=== PATIENT | male | born 1970 | race American Indian/Alaskan Native ===

== ENCOUNTER 2017-05-15 19:45 | Emergency (ER) | payer SELFPAY ==
[2017-05-15] MEDS ORDERED: FUL-GLO OP ONE ×2 (20:13→20:14)
[2017-05-15] MEDS ORDERED: TETRACAINE 0.5% ONE (20:13)
--- NOTE | 2017-05-15 20:14 | Emergency Department Report ---
ED Eye Problem HPI - General Chief complaint: Eye Problems Stated complaint: EYE ISSUE Time Seen by Provider: 05/15/17 20:08 Source: patient, family Mode of arrival: Ambulatory Limitations: No Limitations - History of Present Illness Initial comments: patient complaining of left eye pain and he got metal in his left eye at work. Patient reports left eye pain at 10 out of 10. Patient reports that he got something is eyes at work yesterday. left eye is worst than right. denies decrease in vision but reports he feels like something is in his eyes. Patient wears glasses but said that he lost them and his eye sight is usually bad without glasses. TD vaccine 2 years ago. 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: occurred while hammering/ Eye Symptoms: burning, redness, pain, foreign body sensation, photophobia Severity: severe Severity scale (0 -10): 10 If Pain, Quality: burning Consistency: constant Context: injury Associated Symptoms: none Treatments Prior to Arrival: none - Related Data Patient Tetanus UTD: Yes Previous Rx's Medication Instructions Recorded Last Taken Type HYDROcodone/APAP 5-325 [Bellaire 1 each PO Q6HR PRN #12 tablet 05/15/17 Unknown Rx 5/325] Ibuprofen [Motrin] 600 mg PO Q8H PRN #15 tablet 05/15/17 Unknown Rx Ofloxacin 0.3% [Ocuflox] 2 drops OU TID #1 bottle 05/15/17 Unknown Rx Allergies Allergy/AdvReac Type Severity Reaction Status Date / Time No Known Allergies Allergy Unverified 05/15/17 20:01 ED Review of Systems ROS: Stated complaint: EYE ISSUE Other details as noted in HPI Comment: All other systems reviewed and negative Constitutional: denies: chills, fever Eyes: eye pain. denies: eye discharge, vision change Respiratory: no symptoms reported Cardiovascular: denies: chest pain, palpitations, edema, syncope Gastrointestinal: denies: abdominal pain, nausea, vomiting Musculoskeletal: denies: back pain, arthralgia Skin: denies: rash Neurological: denies: headache, weakness, numbness, paresthesias, confusion, abnormal gait, vertigo ED Past Medical Hx - Past Medical History Previous Medical History?: No - Surgical History Past Surgical History?: Yes Additional Surgical History: bilateral knee surg - Family History Family history: hypertension - Social History Smoking Status: Never Smoker Substance Use Type: Alcohol - Medications Home Medications: Home Medications Medication Instructions Recorded Confirmed Last Taken Type HYDROcodone/APAP 5-325 [Bellaire 1 each PO Q6HR PRN #12 tablet 05/15/17 Unknown Rx 5/325] Ibuprofen [Motrin] 600 mg PO Q8H PRN #15 tablet 05/15/17 Unknown Rx Ofloxacin 0.3% [Ocuflox] 2 drops OU TID #1 bottle 05/15/17 Unknown Rx ED Physical Exam - General Limitations: No Limitations General appearance: alert, in no apparent distress - Head Head exam: Present: atraumatic, normocephalic, normal inspection - Eye Eye exam: Present: normal appearance, PERRL, EOMI, conjunctival injection. Absent: scleral icterus, nystagmus, periorbital swelling, periorbital tenderness Pupils: Present: normal accommodation. Absent: miosis, mydriatic - Expanded Eye Exam Expanded Eyelids: Normal Inspection: Left (ute) Pupils: Regular, Round: Bilateral, Reactive: Bilateral Sclera/Conjunctival: Injection: Bilateral Anterior chamber: Normal Inspection: Bilateral Posterior chamber: Normal Inspection: Bilateral, Papilledema: Bilateral, Hemorrhage: Bilateral, Retinal Detachment: Bilateral Visual acuity (R) = 20/: 100 (20/100 ou) Visual acuity (L) = 20/: 100 With correction: No (uncorrect) - ENT ENT exam: Present: normal exam, normal orophraynx, mucous membranes moist, TM's normal bilaterally, normal external ear exam - Neck Neck exam: Present: normal inspection, full ROM. Absent: tenderness, lymphadenopathy - Respiratory Respiratory exam: Present: normal lung sounds bilaterally. Absent: respiratory distress, chest wall tenderness - Cardiovascular Cardiovascular Exam: Present: regular rate, normal rhythm, normal heart sounds - Extremities Exam Extremities exam: Present: normal inspection, full ROM, normal capillary refill. Absent: tenderness, pedal edema, joint swelling, calf tenderness - Back Exam Back exam: Present: normal inspection, full ROM - Neurological Exam Neurological exam: Present: alert, oriented X3, normal gait, reflexes normal. Absent: motor sensory deficit - Psychiatric Psychiatric exam: Present: normal affect, normal mood - Skin Skin exam: Present: warm, dry, intact, normal color. Absent: rash ED Course Vital Signs 05/15/17 05/15/17 05/15/17 19:59 20:58 21:02 Temperature 98 F Pulse Rate 98 H 86 Respiratory 18 18 18 Rate Blood Pressure 125/69 Blood Pressure 121/79 [Left] O2 Sat by Pulse 100 96 Oximetry - Reevaluation(s) Reevaluation #1: 05/15/17 20:37 Patient given norco 5/325 mg po x1 in ED for eye pain - Procedure Description Procedures done: Procedure: Both eyes examined under phillips lamp. Tetracaine drops instilled in both eyes folowed by flouroscein staining. Noted ute corneal acrasion left greater than right. Eyes flushed with sterile water post procedure. Patient tolerated procedure well and voiced releif of pain. ED Medical Decision Making - Medical Decision Making ED Course: Patient is status post ute eye injury yesterday at work . Reports Foreign body sensation to both eyes. Left worst than right. See procedure note for phillips lamp testing. Patient has poor vision to both eye baseline and lost his glasses. Patient given Bellaire 5/325 mg 2 tabs in ED.TD vacine UTD. Patient with ute corneal abrasion left worst than right. I educated patient on diagnosis and treatment plan. Discharge home with prescription for ofloxacin Opthalmic and to follow up with eye doctor tomorrow. Critical care attestation.: If time is entered above; I have spent that time in minutes in the direct care of this critically ill patient, excluding procedure time. ED Disposition Clinical Impression: Acute eye pain Corneal abrasion, bilateral Qualifiers: Encounter type: initial encounter Qualified Code(s): S05.01XA - Injury of conjunctiva and corneal abrasion without foreign body, right eye, initial encounter Bilateral eye injuries Qualifiers: Encounter type: initial encounter Qualified Code(s): S05.91XA - Unspecified injury of right eye and orbit, initial encounter Disposition: -01 TO HOME OR SELFCARE Is pt being admited?: No Does the pt Need Aspirin: No Condition: Stable Instructions: Corneal Abrasion (ED) Additional Instructions: place Antibiotic in both eyes instructed if Symptoms worsens, please return to the emergency room otherwise followup with eye doctor in the morning. Take Bellaire for pain, but please do not drive or operate heavy machinery while taking this medication as it causes drowsiness Prescriptions: HYDROcodone/APAP 5-325 [Bellaire 5/325] 1 each PO Q6HR PRN #12 tablet PRN Reason: Pain Ibuprofen [Motrin] 600 mg PO Q8H PRN #15 tablet PRN Reason: Pain Ofloxacin 0.3% [Ocuflox] 2 drops OU TID #1 bottle Referrals: NANCY SYKES MD [Staff Physician] - 05/16/17 Forms: Accompanied Note, Work/School Release Form(ED)
[2017-05-15] MEDS ORDERED: NORCO 5/325 PO ONE (20:15)
[2017-05-15] MEDS ORDERED: TETRACAINE 0.5% OU ONE (20:19)
[2017-05-15 21:15] VITALS: BP 121/79
== END 2017-05-15 21:20 | disposition home or self-care (01) ==
LOC: ED 19:45
DX: S05.02XA Injury of conjunctiva and corneal abrasion without foreign body, left eye, initial encounter (principal); S05.01XA Injury of conjunctiva and corneal abrasion without foreign body, right eye, initial encounter; X58.XXXA Exposure to other specified factors, initial encounter; Y93.89 Activity, other specified; Y92.89 Other specified places as the place of occurrence of the external cause; Y99.8 Other external cause status
CPT/HCPCS: 99283